=== PATIENT | male | born 1980 ===

== ENCOUNTER 2017-08-05 16:18 | Emergency (ER) | payer MEDICAID, OTHER ==
[2017-08-05 16:23] VITALS: BMI 25.8
[2017-08-05 16:28] VITALS: TEMP 98.4
[2017-08-05] MEDS ORDERED: Magnesium Sulfate 1 gm in D5W 1 GM/100 ML BAG IVPB ONE (16:44)
[2017-08-05] MEDS ORDERED: Sodium Chloride 0.9% 1,000 ML IV STA (16:44)
--- NOTE | 2017-08-05 16:52 | ED PDOC ---
Arrival/HPI - General Chief Complaint: Back Pain Time Seen by Provider: 08/05/17 16:36 Historian: Patient, Family (Translated by sister at bedside) - History of Present Illness Narrative History of Present Illness (Text): 08/05/17 16:53 36 year old Thai speaking (translated by sister at bedside) male, with past medical history of hypertension, anxiety and depression, presents to the Emergency department for generalized intermittent headache for past 1 month, worsening to constant in frequency over last 2 weeks rated at 10/10. Patient informs associated photophobia and phonophobia but states no changes in hearing , sore throat or vision changes. Patient denies any neck pain, new chest pain, shortness of breath but informs intermittent palpitations. Patient additionally informs intermittent dysuria but denies any hematuria, abdominal pain, nausea, vomiting, new numbness or tingling. However, patient informs bilateral flank discomfort and states recent travel from [place] over last few days. Patient states noncompliance with his blood pressure medication stating he ran out of it and does not remember the name of the medication. Patient denies any slurred speech, facial changes, ambulatory changes, fall, trauma, sick contact or any other complaints. Patient arrived to the Emergency department for further evaluation. PMD: Dr. Huff PFx: diabetes, hypertension. father has a history of migraine. Social Hx: Smokes 1 pack cigarettes/week, socially drinks. No drug use. Extremity Dominancy: Right hand dominant Time/Duration: Other (1 month) Symptom Onset: Gradual Symptom Course: Worsening Quality: Aching Severity Level: 10 Activities at Onset: Light Context: Home Past Medical History - Provider Review Nursing Documentation Reviewed: Yes - Travel History Have you recently traveled outside [place] w/in the past 3 mons?: No - Past History Past History: No Previous - Infectious Disease Hx of Infectious Diseases: None - Cardiac Hx Cardiac Disorders: Yes Hx Hypertension: Yes - Pulmonary Hx Respiratory Disorders: No - Neurological Hx Neurological Disorder: No - HEENT Hx HEENT Disorder: No - Renal Hx Renal Disorder: No - Endocrine/Metabolic Hx Endocrine Disorders: No - Hematological/Oncological Hx Blood Disorders: No - Integumentary Hx Dermatological Disorder: No - Musculoskeletal/Rheumatological Hx Musculoskeletal Disorders: No - Gastrointestinal Hx Gastrointestinal Disorders: No - Genitourinary/Gynecological Hx Genitourinary Disorders: No - Psychiatric Hx Anxiety: Yes Hx Depression: Yes Hx Substance Use: No - Surgical History Hx Orthopedic Surgery: Yes (right ankle) - Anesthesia Hx Anesthesia: Yes Hx Anesthesia Reactions: No Hx Malignant Hyperthermia: No - Suicidal Assessment Feels Threatened In Home Enviroment: No Family/Social History - Physician Review Nursing Documentation Reviewed: Yes Family/Social History: No Known Family HX Smoking Status: Light Smoker < 10 Cigarettes Daily Hx Alcohol Use: Yes Hx Substance Use: No Hx Substance Use Treatment: No Allergies/Home Meds Allergies/Adverse Reactions: Allergies Penicillins Allergy (Verified 08/05/17 16:23) URTICARIA Review of Systems - Physician Review All systems were reviewed & negative as marked: Yes - Review of Systems Constitutional: absent: Fevers Eyes: Photophobia. absent: Vision Changes ENT: absent: Hearing Changes, Sore Throat Respiratory: absent: SOB Cardiovascular: absent: Chest Pain, Palpitations Gastrointestinal: absent: Abdominal Pain, Diarrhea, Nausea, Vomiting Genitourinary Male: Dysuria. absent: Hematuria Musculoskeletal: Normal Skin: Normal Neurological: Headache Endocrine: Normal Hemo/Lymphatic: Normal Psychiatric: Normal Physical Exam Vital Signs Reviewed: Yes Vital Signs Temp Pulse Resp BP Pulse Ox 08/05/17 20:05 89 17 135/78 99 08/05/17 18:40 139/81 08/05/17 17:29 94 H 18 148/89 98 08/05/17 16:24 98.4 F 100 H 18 152/94 H 96 Temperature: Afebrile Blood Pressure: Hypertensive Pulse: Regular Respiratory Rate: Normal Appearance: Positive for: Well-Appearing, Non-Toxic, Uncomfortable, Other (alert /awake, GCS = 15, oriented x 3, uncomfortable, NAD, cooperative, sitting in bed) Pain Distress: None Mental Status: Positive for: Alert and Oriented X 3 - Systems Exam Head: Present: Atraumatic, Normocephalic Pupils: Present: PERRL, Other (no gross photophobia noted, visual field intact b /l, no nytagmus) Extroacular Muscles: Present: EOMI Conjunctiva: Present: Normal Ears: Present: Normal Mouth: Present: Moist Mucous Membranes, Other (WNL, fair dentitions, no dysphonia, no drooling/stridor, no exudate/lesions) Pharnyx: Present: Normal Nose (External): Present: Atraumatic Nose (Internal): Present: Normal Inspection Neck: Present: Normal Range of Motion, Trachea Midline, Other (no step off, no midline tenderness, no nuchal rigidity, no meningeal signs). No: Meningeal Signs, MIDLINE TENDERNESS Respiratory/Chest: Present: Clear to Auscultation, Good Air Exchange, Other ( CTA b/l, no w/r/r, no tachypenia). No: Respiratory Distress, Accessory Muscle Use Cardiovascular: Present: Regular Rate and Rhythm, Normal S1, S2. No: Murmurs Abdomen: Present: Normal Bowel Sounds, Other (well nourished male, no focal tenderness, no masses/rebound/guarding/rigidity, no gibbons's sign, no mcburney' s point tenderness). No: Tenderness, Distention, Peritoneal Signs Back: Present: Normal Inspection. No: CVA Tenderness, Midline Tenderness, Paraspinal Tenderness Upper Extremity: Present: Normal Inspection, Normal ROM, NORMAL PULSES, Neurovascularly Intact, Capillary Refill < 2s. No: Cyanosis, Edema Lower Extremity: Present: Normal Inspection, NORMAL PULSES, Normal ROM, Neurovascularly Intact, Capillary Refill < 2 s, Other (+ ambulatory). No: Edema Neurological: Present: GCS=15, CN II-XII Intact, Speech Normal, Other (no facial asymmetries, no slurr speech, NIH stroke scale ~ 0) Skin: Present: Warm, Dry, Normal Color, Other (cap refill < 1sec, no ulcerations , no petechiae, no rashes). No: Rashes Psychiatric: Present: Alert, Oriented x 3, Normal Insight, Normal Concentration Medical Decision Making ED Course and Treatment: 08/05/17 17:08 Impression: 36 year old male presents to the Emergency department for headache, photophobia, phonophobia and intermittent palpitation and dysuria. I have considered all differential diagnoses regarding patients chief medical complaints/clinical findings which include but are not limited to: Headache unlikely TIA vs. CVA. Dysuria rule out UTI, possible renal polyp. Plan: -- CT of Head -- EKG -- Labs -- Toradol -- IV fluids -- Apresoline -- Urinalysis -- Reassess and disposition Progress Notes: 08/05/17 19:41 pt is feeling much improved pt states headache is now 3-4/10 improved vital signs pt/family are made aware of pt's medical results pt is encouraged fluids pt is encouraged smoking cessation pt will f/u as directed pt will be discharged home Re-evaluation Time: 19:41 Reassessment Condition: Improved - Lab Interpretations Lab Results: 08/05/17 17:30 08/05/17 17:30 Lab Results 08/05/17 19:10: Urine Color Yellow, Urine Appearance Clear, Urine pH 6.0, Ur Specific [place] 1.025, Urine Protein Negative, Urine Glucose (UA) Negative, Urine Ketones Negative, Urine Blood Negative, Urine Nitrate Negative, Urine Bilirubin Negative, Urine Urobilinogen 0.2, Ur Leukocyte Esterase Negative 08/05/17 17:30: Sodium 142, Potassium 4.0, Chloride 103, Carbon Dioxide 26, Anion Gap 17, BUN 19, Creatinine 1.1, Est GFR ( Amer) > 60, Est GFR (Non- Af Amer) > 60, Random Glucose 99, Calcium 9.6, Total Bilirubin 0.4, AST 40, ALT 84 H, Alkaline Phosphatase 61, Total Protein 8.1, Albumin 4.7, Globulin 3.4, Albumin/Globulin Ratio 1.4 08/05/17 17:30: WBC 8.7 D, RBC 4.82, Hgb 15.2, Hct 44.0, MCV 91.3, MCH 31.5, MCHC 34.5, RDW 12.9, Plt Count 308, MPV 10.0, Gran % 51.3, Lymph % (Auto) 36.7 H , Maries % (Auto) 8.9 H, Eos % (Auto) 2.8, Baso % (Auto) 0.3, Gran # 4.47, Lymph # (Auto) 3.2, Maries # (Auto) 0.8 H, Eos # (Auto) 0.2, Baso # (Auto) 0.03 I have reviewed the lab results: Yes Interpretation: All labs normal - RAD Interpretation Narrative RAD Interpretations (Text): 08/05/17 19:20 CT of Head reviewed by radiologist, shows: HEMORRHAGE: No intracranial hemorrhage. BRAIN: No mass effect or edema. No atrophy or chronic microvascular ischemic changes. VENTRICLES: Unremarkable. No hydrocephalus. CALVARIUM: Unremarkable. PARANASAL SINUSES: Unremarkable as visualized. No significant inflammatory changes. MASTOID AIR CELLS: Unremarkable as visualized. No inflammatory changes. OTHER FINDINGS: None. IMPRESSION: Normal CT of the Head. Radiology Orders: 08/05/17 16:44 HEAD W/O CONTRAST [CT] Stat Tissue Recovery Technician: Radiologist - EKG Interpretation EKG Interpretation (Text): 08/05/17 19:41 NSR at 80 bpm, normal axis, no ectopy, no st-t changes, NORMAL EKG; Interpreted by ED Physician: Yes Type: 12 lead EKG Comparison: No previous EKG avail. - Medication Orders Current Medication Orders: Discontinued Medications Hydralazine HCl (Apresoline) 25 mg PO ONCE ONE Stop: 08/05/17 16:48 Last Admin: 08/05/17 17:29 Dose: 25 mg MAR Pulse and Blood Pressure Document 08/05/17 17:29 SF (Rec: 08/05/17 17:29 [email or web address]) Pulse Pulse Rate (60-90) 93 Blood Pressure Blood Pressure (100/60-150/90) 152/89 Magnesium Sulfate/Dextrose (Magnesium Sulfate 1 Gm/100 Ml D5w) 1 gm in 100 mls @ 100 mls/hr IVPB ONCE ONE Stop: 08/05/17 17:43 Last Admin: 08/05/17 17:29 Dose: 100 mls/hr eMAR Start Stop Document 08/05/17 17:29 SF (Rec: 08/05/17 17:29 SF [email or web address]) Intravenous Solution Start Date 08/05/17 Start Time 17:29 End Date 08/05/17 End time 18:30 Total Infusion Time 61 Sodium Chloride (Sodium Chloride 0.9%) 1,000 mls @ 999 mls/hr IV .Q1H1M STA Stop: 08/05/17 17:44 Last Admin: 08/05/17 17:31 Dose: 999 mls/hr eMAR Start Stop Document 08/05/17 17:31 SF (Rec: 08/05/17 17:31 SF [email or web address]) Intravenous Solution Start Date 08/05/17 Start Time 17:31 End Date 08/05/17 End time 18:32 Total Infusion Time 61 Ketorolac Tromethamine (Toradol) 30 mg IVP STAT STA Stop: 08/05/17 16:46 Last Admin: 08/05/17 17:29 Dose: 30 mg MAR Pain Assessment Document 08/05/17 17:29 SF (Rec[facility] 08[facility]05/17 17:29 [email or web address] Pain Reassessment Is this a pain reassessment? Yes Sleep Is patient sleeping during reassessment? No Presence of Pain Presence of Pain Yes IVP Administration Document 08/05/17 17:29 (Rec: 08/05/17 17:29 [email or web address] Charges for Administration # of IVP Administrations 1 - Scribe Statement The provider has reviewed the documentation as recorded by the Scribe Belkys Joel. All medical record entries made by the Scribe were at my direction and personally dictated by me. I have reviewed the chart and agree that the record accurately reflects my personal performance of the history, physical exam, medical decision making, and the department course for this patient. I have also personally directed, reviewed, and agree with the discharge instructions and disposition. Disposition/Present on Arrival - Present on Arrival Any Indicators Present on Arrival: No History of DVT/PE: No History of Uncontrolled Diabetes: No Urinary Catheter: No History of Decub. Ulcer: No History Surgical Site Infection Following: None - Disposition Have Diagnosis and Disposition been Completed?: Yes Diagnosis: Headache, Elevated blood pressure reading, Nonadherence to medical treatment Disposition: HOME/ ROUTINE Disposition Time: 19:43 Patient Plan: Discharge Condition: STABLE Discharge Instructions (ExitCare): High Blood Pressure in Adults, Headache, Adult Print Language: SAMOAN Additional Instructions: Make sure to see your doctor in 1-2 days DRINK PLENTY OF FLUIDS STOP SMOKING is encouraged take your medications as prescribed RETURN TO ED IF worse pain, cant breath, persistent vomiting, high fever >101- 102 for hours, altered behavior, slurr speech, facial changes, focal weakness ( arm/leg or both), unable to urinate, heavy/persistent bleeding, passing out, chest pain, or other medical emergencies Prescriptions: Atenolol [Tenormin] 25 mg PO DAILY #30 tablet Ibuprofen [Motrin] 600 mg PO QID PRN #30 tab PRN Reason: Pain, Mild (1-3) Metoclopramide HCl [Reglan] 10 mg PO TID PRN #15 tablet PRN Reason: nausea Referrals: Coleman Huff MD [Primary Care Provider] - Follow up with primary Parmjit Medrano MD [Staff Provider] - Follow up with primary Forms: [employer] (Lithuanian), WORK NOTE
[2017-08-05 17:59] LABS: BASO # 0.03 K/mm3 (0.0-2.0); BASO % 0.3 % (0.0-3.0); EOS # 0.2 (0.0-0.7); EOS % 2.8 % (1.5-5.0); GRAN # 4.47 (1.4-6.5); GRAN % 51.3 % (50.0-68.0); HEMOGLOBIN 15.2 g/dL (14.0-18.0); LYMPH # 3.2 (1.2-3.4); LYMPH % 36.7 % (22.0-35.0); MEAN CELL VOLUME 91.3 fl (80.0-105.0); MEAN CORPUSCULAR HEMOGLOBIN 31.5 pg (25.0-35.0); MEAN CORPUSCULAR HGB CONC 34.5 g/dl (31.0-37.0); MONO # 0.8 (0.1-0.6); MONO % 8.9 % (1.0-6.0); RBC 4.82 10^6/uL (3.5-6.1); RED CELL DISTRIBUTION WIDTH 12.9 % (11.5-14.5); WHITE BLOOD COUNT 8.7 10^3/ul (4.5-11.0)
[2017-08-05 18:01] LABS: ALB/GLOB RATIO 1.4 (1.1-1.8); ALBUMIN 4.7 g/dL (3.0-4.8); CALCIUM 9.6 mg/dL (8.4-10.5); GFR AFRICAN-AMERICAN > 60; GFR NON-AFRICAN AMERICAN > 60
[2017-08-05 18:25] LABS: ALT/SGPT 84 U/L (7-56); AST/SGOT 40 U/L (17-59); BLOOD UREA NITROGEN 19 mg/dL (7-21)
--- NOTE | 2017-08-05 18:46 | CT ---
PROCEDURE: CT HEAD WITHOUT CONTRAST. HISTORY: headache COMPARISON: None available. TECHNIQUE: Axial computed tomography images were obtained through the head/brain without intravenous contrast. Radiation dose: Total exam DLP = 913.63 mGy-cm. This CT exam was performed using one or more of the following dose reduction techniques: Automated exposure control, adjustment of the mA and/or kV according to patient size, and/or use of iterative reconstruction technique. FINDINGS: HEMORRHAGE: No intracranial hemorrhage. BRAIN: No mass effect or edema. No atrophy or chronic microvascular ischemic changes. VENTRICLES: Unremarkable. No hydrocephalus. CALVARIUM: Unremarkable. PARANASAL SINUSES: Unremarkable as visualized. No significant inflammatory changes. MASTOID AIR CELLS: Unremarkable as visualized. No inflammatory changes. OTHER FINDINGS: None. IMPRESSION: Normal CT of the Head.
[2017-08-05 19:24] LABS: URINE BILIRUBIN NEGATIVE (NEGATIVE); URINE BLOOD NEGATIVE (NEGATIVE); URINE GLUCOSE (UA) NEGATIVE (NEGATIVE); URINE LEUKOCYTE ESTERASE NEGATIVE Leu/uL (NEGATIVE); URINE PROTEIN NEGATIVE mg/dL (<30 mg/dL); URINE UROBILINOGEN 0.2 E.U./dL (<1 E.U./dL)
[2017-08-05 19:27] LABS: URINE APPEARANCE CLEAR (CLEAR); URINE COLOR YELLOW (YELLOW)
[2017-08-05 20:06] VITALS: BP 135/78; PULSE 89; RESP 17; O2SAT 99
--- NOTE | 2017-08-06 09:42 | CARD ---
APPROVED REPORT EKG Measurement Heart [id number] <Conclusion> Normal sinus rhythm Normal ECG
== END 2017-08-05 20:06 | disposition home or self-care (01) ==
LOC: ED 16:18
DX: R51 Headache (principal); I10 Essential (primary) hypertension; F17.210 Nicotine dependence, cigarettes, uncomplicated; Z91.14 Patient's other noncompliance with medication regimen; Z82.49 Family history of ischemic heart disease and other diseases of the circulatory system
CPT/HCPCS: 70450; 80053; 81003; 82948; 85025; 93005; 96365; 96375; 99285; J1885; J3475; J7040